=== PATIENT | male | born 1965 | race Caucasian/White ===

== ENCOUNTER 2022-10-21 03:31 | Emergency (ER) | payer BC, SELFPAY ==
[2022-10-21 03:33] VITALS: BP 159/97; PULSE 80; RESP 18; TEMP 36.8; O2SAT 100; BMI 24.9
--- NOTE | 2022-10-21 03:40 | EKG12_ITS ---
Test Reason : cp Blood Pressure : / mmHG Vent. Rate : 078 BPM Atrial Rate : 078 BPM P-R Int : 132 ms QRS Dur : 076 ms QT Int : 356 ms P-R-T Axes : 042 000 051 degrees QTc Int : 405 ms Normal sinus rhythm Normal ECG No previous ECGs available Confirmed by BRIANNA PARRA ([id number]), editorial writer KELLEE MARTIN ([id number]) on 11/01/2022 10:00:44 AM Referred By: Mundo Confirmed By:BRIANNA PARRA
--- NOTE | 2022-10-21 04:04 | EX.ED.DYSGE1 ---
HPI History of Present Illness Chief Complaint: Hypertension Narrative Narrative: 57-year-old male who denies significant past medical history presents with elevated blood pressure from last evening. He states that he felt shaky and mildly anxious. States he felt a few jolts in his back and quivering and overall felt shaky. He took his blood pressure at home and it was reportedly elevated at 196 systolic. He denied any chest pain or shortness of breath. Symptoms seem to have resolved. He went to bed, but woke up at around 1:00 in the morning, almost 3 hours ago, and felt the same way. He wanted to take his blood pressure again and it was elevated in the 170s systolic. He wanted his to bring him to the emergency department because of his elevated blood pressure. 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 He is feeling improved currently. He states he is not sure but he may be experiencing panic attacks. PFSH [facility] Medical History no medical history Home Medications omeprazole 20 mg capsule,delayed release 20 mg PO DAILY 10/21/22 [History Last Taken Unknown] Allergy/AdvReac Type Severity Reaction Status Date / Time Penicillins Allergy PT UNSURE Verified 10/21/22 03:36 OF REACTION Surgical History no surgical history Social History Smoking Status: Never smoker ROS ROS ED ROS Narrative Constitutional: No fever, no chills. HEENT: No sore throat. No neck pain. No loss of vision. No rhinorrhea. Cardiovascular: No chest pain. No palpitations. No pedal edema. Respiratory: No cough, no shortness of breath. Abdominal: No abdominal pain. No nausea. No vomiting. Genitourinary: No dysuria. No hematuria. Musculoskeletal: No myalgias. No arthralgias. Quivering sensation and neck and back. Neurologic: No headaches. No dizziness. No lightheadedness. Shakiness. Skin: No rash. No change in color. Psychiatric: No depression. Questionable anxiety. EXAM Physical Exam Narrative Exam Narrative: Afebrile. Vital signs noted. HEENT: Normocephalic. Atraumatic. PERRL, EOMI. Neck soft and supple. No point tenderness or step off. Cardiovascular: Regular rate and rhythm. No murmurs, rubs, or gallops appreciated. Respiratory: No tachypnea. Lungs clear to auscultation bilaterally. Gastrointestinal: Abdomen soft, nontender, with normoactive bowel sounds. No rebound or guarding. Neurological: Awake. Alert. Nonfocal, nonlateralizing. Skin: No rash. Normal color. No pallor. Musculoskeletal: No pedal edema. Full range of motion extremities. Const Vital Signs: 10/21/22 03:33 10/21/22 03:37 Temperature 98.2 F Temperature Source Oral Pulse Rate 80 Respiratory Rate 18 Respiratory Effort Normal Non-Labored Respiratory Pattern Normal Blood Pressure 159/97 H Blood Pressure Mean 117 Pulse Ox 100 Oxygen Delivery Method Room Air MDM MDM MDM Narrative Medical decision making narrative: In the differential diagnosis is undiagnosed hypertension versus panic attacks and generalized anxiety disorder. I do not feel laboratory work is indicated as he is feeling improved. An EKG was obtained and interpreted by myself independently which demonstrates normal sinus rhythm at 78 bpm without ectopy or acute ST changes. No STEMI. His blood pressure came down to 159/97 initially, and after talking with the patient and his was currently in the 130s systolic. I discussed at length with them whether or not to start medication for his hypertension, and he states he is very sensitive to medications and that he accidentally took one of his mother's hypertensive pills when he was younger because she had kept him in an aspirin bottle, and he had side effects of lightheadedness and low heart rate. Hence, I do feel that now that his blood pressure is normalizing into the borderline hypertension area, that he should not be started on medications from the emergency department. He and his state that he rarely goes to a primary care physician but I urged the importance of blood pressure control and yearly physicals for outpatient laboratory testing with a primary care provider. I think that he may be experiencing these panic attacks, and periods of anxiety. However, I do not feel that benzodiazepines are currently indicated. He will be watched in the emergency department to make sure that his blood pressure does not suddenly elevate, but I do feel that he can be discharged to follow-up with his primary care provider that he has listed. Return instructions to the emergency department were reviewed. I do not feel he requires observation or admission for uncontrolled hypertension. Patient and are agreeable to the plan. Disposition is discharged home in stable condition. History & Record Review Additional record(s) reviewed:: No prior records Discharge Plan Triage Chief Complaint: Hypertension ED Provider: Dilshad Penn Dx/Rx/DC Orders Clinical Impression: Anxiety, Shakiness, Blood pressure elevated without history of HTN Instructions: ED Anxiety Reaction, ED Hypertension, To Be Confirmed Prescriptions: No Action omeprazole 20 mg capsule,delayed release(DR/EC) 20 mg PO DAILY Primary Care Provider: Mary Navarro Referrals: Mary Navarro MD [Primary Care Provider] - As soon as possible Activity Restrictions/Additional Instructions: Keep a log of your blood pressures. Take your blood pressure at the same time every day at least for the next week. Follow-up with your primary care provider soon as possible, possibly next week. Return with consistently elevated blood pressure, new or worsening symptoms. Disposition Disposition: Home, Self Care
[2022-10-21 04:23] VITALS: BP 134/94; PULSE 76; RESP 15; O2SAT 100
[2022-10-21 04:41] VITALS: BP 134/94; PULSE 76; RESP 15; O2SAT 99
== END 2022-10-21 04:51 | disposition home or self-care (01) ==
LOC: ED 04:07
PROVIDERS: Emergency Provider Emergency Medicine; PCP Family Medicine; Visit Provider Emergency Medicine
DX: R03.0 Elevated blood-pressure reading, without diagnosis of hypertension (principal); F41.9 Anxiety disorder, unspecified; I10 Essential (primary) hypertension; Z79.899 Other long term (current) drug therapy
CPT/HCPCS: 93005; 99282